=== PATIENT | female | born 1970 | race Caucasian/White ===

== ENCOUNTER 2017-10-06 08:42 | Day surgery (SDC) | payer OTHER, SELFPAY ==
[2017-10-03 18:29] LABS: Thyroid Stim Hormone (TSH) 1.11 uIU/mL (0.358-3.74)
[2017-10-06] VITALS (13 sets, daily range): BP systolic 102–123; BP diastolic 56–87; PULSE 46–79; RESP 14–18; TEMP 36.2–37.2; O2SAT 98–100; BMI 25.3
--- NOTE | 2017-10-06 | HYST_PTH ---
PATIENT: CRYSTAL SMITH LOC: [facility] – [place] U#:[id number] AGE/SX: 46/F ROOM: RE10/06/[address]: Dr. Elen Gonzales, MDDOB: 1970 BED: DIS: 10/07/2017 SPEC #: [id number] RECD: 10/07/17 14:27 STATUS: LAURA CRYSTAL #: [id number] ANNALISE: 10/06/17 00:[address]: Elen Gonzales DEPT: SURGICAL PATHOLOGY RECD BY: Georgi Washington ENTERED: 10/07/17 14:27 SP TYPE: HYSTERECT OTHR DR: MD Twila Quinones, HEADLINER INSTALLER-C Tissues: Uterus, NOS Procedures: Surgery Specimen Level V HEADER OPERATION: Hysterectomy, lap assisted vaginal; bilateral salpingectomy, cysto, right oophorectomy PRE-OP DIAGNOSIS: Pelvic pain, post ablation TISSUE SUBMITTED: Uterus, bilateral fallopian tubes, right ovary MICROSCOPIC DIAGNOSIS Uterus, bilateral fallopian tubes and right ovary, vaginal hysterectomy, bilateral salpingectomy and right oophorectomy: Cervix ? mild chronic cystic cervicitis. Endometrium ? focal area of proliferative endometrium and changes consistent with status post ablation. Myometrium - no pathologic diagnosis. Bilateral fallopian tubes - no pathologic diagnosis. Right ovary ? physiologic follicular and corpus luteum cysts. SJ:chepe 10/10/17 MICROSCOPIC DESCRIPTION Slides are reviewed. GROSS DESCRIPTION Received in fixative is one container labeled with the patient's name and designated uterus, bilateral fallopian tubes and right ovary. The specimen consists of a hysterectomy specimen consisting of uterus with cervix, attached right fallopian tube and ovary and left fallopian tube. The uterus with cervix weighs 82 gm and measures 8 x 6 x 4 cm. The serosal surface is chiang, glistening and with a few instrumentation rollins. The ectocervical mucosa shows focal congestion. The external os is slit-like in contour. The endocervical canal measures 2.5 cm in length and the endocervical mucosa is unremarkable. Sections of the cervix reveal multiple cysts filled with mucoid material. The endometrial cavity is narrow and measures 4 cm in length and 0.5 cm in width. The endometrium is congested without any mass lesion and measures <0.1 cm in thickness. Sections of the uterine wall do not reveal any mass lesion and it measures up to 2.5 cm in thickness. The right fallopian tube measures 7 cm in length and up to 0.6 cm in diameter. The fimbrial end is identified. No tubo-ovarian adhesions are noted. The soft to cystic ovary measures 4 x 2 x 2 cm. Sections reveal multiple cysts filled with clear to slightly turbid fluid. A cystic corpus luteum is also noted measuring 1 cm in greatest dimension. The largest cyst measures 1.5 cm in greatest dimension. The left fallopian tube measures 8 cm in length and 0.6 cm in diameter. The fimbrial end is identified. Sections reveal unremarkable cut surfaces. Box Turner sections are submitted in ten cassettes as follows: 1 - anterior cervix, 2 - posterior cervix, 3 & 4 - anterior uterine wall, 5 & 6 - posterior uterine wall, 7 ? right fallopian tube, 8 & 9 ? right ovary, 10 ? left fallopian tube. / LISY:chepe 10/07/17 TC:5 CPT: 64337
[2017-10-06 09:01] LABS: Internal QC Validated? YES +Cl - CLEAR BKGD; Pregnancy, Urine Negative Negative
[2017-10-06 09:10] LABS: Hematocrit 40.3 % (37-47); Hemoglobin 13.6 g/dl (12.0-15.0); Mean Corp Hgb Conc 33.7 g/gl (32-36); Mean Corpuscular Hgb 31.2 pg (27.0-32.0); Mean Corpuscular Volume 92.4 fL (81-99); Mean Platelet Vol. 10.4 fl (6.2-12.0); Platelet Count 360 K/mm3 (150-450); RBC Distribution Width SD 40.3 fl (35.1-43.9); Red Blood Count 4.36 M/mm3 (4.2-5.4); Scan Indicated on CBC? Y/N NO; White Blood Count 5.9 K/mm3 (4.4-11.0)
[2017-10-06] MEDS: Bupivacaine Mpf 0.5% 30 ML VIAL (09:49)
[2017-10-06] MEDS: Lubricating Jelly 60 GM Tube 30 GM TOPICAL (10:22)
[2017-10-06] MEDS: Ondansetron 4 MG/2 ML Vial (12:25)
--- NOTE | 2017-10-06 12:32 | PCM.CONS.U ---
Problem List (1) Bladder injury Status: Acute Qualifiers: Encounter type: initial encounter Qualified Code(s): S37.20XA - Unspecified injury of bladder, initial encounter Reason for Consult Date of Consultation: 10/06/17 Reason for Consultation: Bladder injury during hysterectomy History of Present Illness: The patient is a 46 year old female who is undergoing a laparoscopic-assisted vaginal hysterectomy at the time of the procedure was recognized to have a bladder injury in the midline bladder area so I was called in to assist with closure of his bladder injury. Reviewed the patient's chart. Past Medical History Allergies promethazine [From Phenergan] Adverse Reaction (Verified 10/06/17 09:07) Swelling Home Medications: Ambulatory Orders Medication Instructions Recorded Cetirizine HCl [Zyrtec] 10 mg PO DAILY MDD ALLERGIES 09/29/17 Ibuprofen [Motrin] 800 mg PO Q6H PRN PRN 09/29/17 Surgical History: noncontributory Psychiatric History: No pertinent psych hx Smoking Status: Never smoker Tobacco Use: Chew Alcohol: None Drugs: None Physical Exam - Physical Exam Vital Signs Temp 97.9 F 10/06/17 09:10 Pulse 53 L 10/06/17 09:10 Resp 14 10/06/17 09:10 BP 120/77 10/06/17 09:10 Pulse Ox 99 10/06/17 09:10 Intake & Output 10/04/17 10/05/17 10/06/17 23:59 23:59 23:59 Output Total 40 / 40 Balance -40 / -40 Weight: 67 kg Output: Urine 40 / 40 Oral: Moist Mucosa Neck: Supple Lungs: Normal air movement Cardiovascular: Regular rate Abdomen: Soft, Obese Laboratory Tests Past 24 Hrs 10/06/17 10/06/17 10/06/17 08:51 09:04 09:04 WBC 5.9 RBC 4.36 Hgb 13.6 Hct 40.3 MCV 92.4 MCH 31.2 MCHC 33.7 RDW 12.0 RDW Differential 40.3 Plt Count 360 MPV 10.4 Urine Test Negative Blood Type O POSITIVE Antibody Screen NEGATIVE Assessment/Plan All Active Problems Bladder injury (Acute) Multinodular goiter (nontoxic) (Acute) 46-year-old female with a bladder injury plan to proceed with laparoscopic repair of bladder injury intraoperatively.
--- NOTE | 2017-10-06 12:34 | PCM.OPRPT ---
Problem List (1) Bladder injury Status: Acute Qualifiers: Encounter type: initial encounter Qualified Code(s): S37.20XA - Unspecified injury of bladder, initial encounter Report of Operation Date of Procedure: 10/06/17 Pre-Operative Diagnosis: Bladder injury during hysterectomy Post-Operative Diagnosis: Same Surgery/Procedure Performed:: Laparoscopic repair of a bladder injury 2 layer closure and cystoscopy Description of Surgical Findings:: 46-year-old female who underwent a laparoscopic-assisted vaginal hysterectomy who was found to have a injury to the bladder at the midline posteriorly. I was called in by the [employer] help assist repair the bladder injury. 46-year-old female was asleep under anesthesia ports were placed in the abdomen I inspected the abdomen and recognized that the bladder midline first layer had been opened up already and then there was an injury to the mucosal layer and there was an injury to the bladder with a hole about the size of 1 cm in the midline posterior aspect of the bladder. I then used a V lock stitch and proceeded with stitching the first layer of the bladder closed after closing this up put a catheter in the bladder there is still small defect so I put a second stitch in and then this close it up really nicely we filled the bladder and distended and there is no leakage from the bladder. I then used a Vicryl stitch and used interrupted sutures to then closed the second layer laparoscopically for a 2 layer closure over the repair to complete a 2 layer repair over the injury. I then did a cystoscopy and the both left and right ureteral orifice were uninvolved and were effluxing clear urine and there was good closure of the bladder and no leakage. We will leave the catheter in for 2 weeks and 18 Nepali catheter for good drainage. Type of Anesthesia:: General Drains: Larkin - Admit VTE Documentation VTE Present on Admission: No VTE Mechan Device Prophylaxis: SCD's VTE Pharm Prophylaxis ordered?: No Reason prophylaxis not ordered:: Treatment Not Indicated
--- NOTE | 2017-10-06 12:43 | PCM.OP.BLANK ---
Operative Report Date of Procedure: 10/06/17 Pre-Operative Diagnosis: pelvic pain, post ablation syndrome, suspect adenomyosis Post-Operative Diagnosis: same, possible endometriosis Surgery/Procedure Performed:: LAVH, bilateral salpingectomy, right oophorectomy, repair of incidental cystotomy Description of Surgical Findings:: Uterus 7cm - right ovary with possible endometriosis noted, left ovary normal. incidental 0.5cm cystotomy noted on posterior midline aspect found during cystoscopy. Urology Dr. Lazar called to closed defect laparoscopically Surgeon: dr Elen Kat trip rider: Dr. Renetta Mckenzie Intraop Consultation: Urology, Dr. Lazar Type of Anesthesia:: General Anesthesiologist: TUSHAR Special Medications: 1% Lidocaine with Epinephrine Specimen's removed: uterus, cervix, bilateral tubes and Right ovary Drains: bourgeois Estimated Blood Loss (mL): 50 complications: small cystotomy (0.5cm) posterior midline- repaired in 2 layer laparoscopically Description of Procedure: Patient take to OR and prepped and draped in usual sterile fashion in dorsal lithotomy position with her arms tucked in a neurologically safe and neutral position. The uterus sounded to 7 cm. The [employer] uterine manipulator and bourgeois were placed. Attention was turned to the abdomen. All port sites were infiltrated with 1% lidocaine before the incisions were made. The anterior abdominal wall was tented up with towel clamps and using a direct entry approach a 5 mm intraumbilical port was placed. Intraperitoneal placement was confirmed with the laparoscope and the pneumoperitoneum was created. The patient was placed in Trendelenburg and 5 mm right and left lower quadrant ports were placed under direct visualization. The bowel was swept away. Left Ovary appeared normal. Right ovary with multiple cystic like structures with possible endometriotic implants. The Infundibulopelvic ligament on right were grasped, clamped, sealed and transected with the Ligasure. The left mesosalpinx was clamped and sealed starting at fimbriated end. The round ligaments were divided. The anterior peritoneum was dissected down to create the bladder flap with blunt dissection and the LigaSure. The uterine arteries were isolated, clamped, sealed and cut. There was minimal back bleeding from the uterus. Attention was turned to the vaginal portion of the case. The anterior vagina was infiltrated w/ lidocaine with dilute epinephrine. An incision was made over the anterior vagina and the anterior colpotomy incision was made with blunt and sharp dissection. The lower vagina was clamped, transected and suture ligated. A second pedicle containing the peritoneum was secured with Adri clamps, cut and suture ligated. The uterus was brought through the anterior colpotomy incision and the uterosacral ligaments were clamped, cut and suture ligated. The pedicles were examined and were suture ligated. The specimen was handed off. The cuff was closed with interrupted 0-vicryl figure of 8 sutures. Small amount of blood noted from bourgeois. Cystoscopy performed. Small cystotomy noted posterior midline. Urology called. See Dr. Lazar dictation for repair. 12mm port placed suprapubically. The defect was noted laparoscopically - approximately 0.5cm and closed in two layers- first layer with v-lock suture and second layer with vicryl. it was water tight. cystoscopy was then performed again and defect was closed- ureters were both seen effluxing. The pneumoperitoneum was recreated and the cuff and pedicles were hemostatic. The suprapubic port was closed with 0-vicryl to closed fascia. The skin incisions were closed with skin glue and 3-0 monocryl. The vaginal sweep was completed and negative. pt will keep bourgeois in place x 2 weeks and will see Urology in office for follow up. Grafts/Implants Used: none
--- NOTE | 2017-10-06 12:52 | OP.PCM_ITS ---
Operative Report Date of Procedure: 10/06/17 Pre-Operative Diagnosis: pelvic pain, post ablation syndrome, suspect adenomyosis Post-Operative Diagnosis: same, possible endometriosis Surgery/Procedure Performed:: LAVH, bilateral salpingectomy, right oophorectomy , repair of incidental cystotomy Description of Surgical Findings:: Uterus 7cm - right ovary with possible endometriosis noted, left ovary normal. incidental 0.5cm cystotomy noted on posterior midline aspect found during cystoscopy. Urology Dr. Lazar called to closed defect laparoscopically Surgeon: dr Elen Kat export coordinator: Dr. Renetta Mckenzie Intraop Consultation: Urology, Dr. Lazar Type of Anesthesia:: General Anesthesiologist: TUSHAR Special Medications: 1% Lidocaine with Epinephrine Specimen's removed: uterus, cervix, bilateral tubes and Right ovary Drains: bourgeois Estimated Blood Loss (mL): 50 complications: small cystotomy (0.5cm) posterior midline- repaired in 2 layer laparoscopically Description of Procedure: Patient take to OR and prepped and draped in usual sterile fashion in dorsal lithotomy position with her arms tucked in a neurologically safe and neutral position. The uterus sounded to 7 cm. The [employer] uterine manipulator and bourgeois were placed. Attention was turned to the abdomen. All port sites were infiltrated with 1% lidocaine before the incisions were made. The anterior abdominal wall was tented up with towel clamps and using a direct entry approach a 5 mm intraumbilical port was placed. Intraperitoneal placement was confirmed with the laparoscope and the pneumoperitoneum was created. The patient was placed in Trendelenburg and 5 mm right and left lower quadrant ports were placed under direct visualization. The bowel was swept away. Left Ovary appeared normal. Right ovary with multiple cystic like structures with possible endometriotic implants. The Infundibulopelvic ligament on right were grasped, clamped, sealed and transected with the Ligasure. The left mesosalpinx was clamped and sealed starting at fimbriated end. The round ligaments were divided. The anterior peritoneum was dissected down to create the bladder flap with blunt dissection and the LigaSure. The uterine arteries were isolated, clamped, sealed and cut. There was minimal back bleeding from the uterus. Attention was turned to the vaginal portion of the case. The anterior vagina was infiltrated w/ lidocaine with dilute epinephrine. An incision was made over the anterior vagina and the anterior colpotomy incision was made with blunt and sharp dissection. The lower vagina was clamped, transected and suture ligated. A second pedicle containing the peritoneum was secured with Adri clamps, cut and suture ligated. The uterus was brought through the anterior colpotomy incision and the uterosacral ligaments were clamped, cut and suture ligated. The pedicles were examined and were suture ligated. The specimen was handed off. The cuff was closed with interrupted 0-vicryl figure of 8 sutures. Small amount of blood noted from oburgeois. Cystoscopy performed. Small cystotomy noted posterior midline. Urology called. See Dr. Lazar dictation for repair. 12mm port placed suprapubically. The defect was noted laparoscopically - approximately 0.5cm and closed in two layers- first layer with v-lock suture and second layer with vicryl. it was water tight. cystoscopy was then performed again and defect was closed- ureters were both seen effluxing. The pneumoperitoneum was recreated and the cuff and pedicles were hemostatic. The suprapubic port was closed with 0-vicryl to closed fascia. The skin incisions were closed with skin glue and 3-0 monocryl. The vaginal sweep was completed and negative. pt will keep bourgeois in place x 2 weeks and will see Urology in office for follow up. Grafts/Implants Used: none
[2017-10-06] MEDS: Ketorolac 30 MG/ML Syringe IV ×2 (13:26→18:41)
[2017-10-06 14:03] LABS: Anion Gap 6 (5-15); BUN 12 mg/dL (7-18); BUN/Creat Ratio 9.9 RATIO (10-20); Calcium,Total 8.3 mg/dL (8.5-10.1); Chloride 105 mmol/L (98-107); Creatinine, Serum 1.21 mg/dL (0.55-1.02); EST Glomerular Filtration Rate 51 mL/min (>60); Est Glom Filt Rate - Afr Amer 62 mL/min (>60); Estimated Creatinine Clearance 51.23 ml/min; Glucose 89 mg/dL (74-106); Potassium 4.2 mmol/L (3.5-5.1); Sodium Level 137 mmol/L (136-145)
--- NOTE | 2017-10-06 14:13 | PCM.DC.AHY ---
Discharge Diet: No Restrictions Discharge Activity: Return to Normal Activity, May Not Drive - while taking narcotic pain medications., May Shower May resume sexual activity in: 6-8 weeks Lifting Restrictions: 20 Call your doctor if your incision/area has: Continuous Slow Oozing, Sudden Increased Bleeding, Increased Pain/ Swelling, Increased Redness, Foul Smelling Discharge Call your doctor if you observe: Fever of 101 or Higher, Inability to urinate, Inability to have a bowel movement, Using more than one pad per hour Cleanse incision/area with: - - you have skin glue over incisions, ok to let soap and water run over them and dab dry Allergies/Adverse Reactions: Allergies promethazine [From Phenergan] Adverse Reaction (Verified 10/06/17 09:07) Swelling Medications to take at Discharge Cetirizine HCl [Zyrtec] 10 mg PO DAILY MDD ALLERGIES 09/29/17 Ibuprofen [Motrin] 800 mg PO Q6H PRN PRN 09/29/17 Oxycodone HCl/Acetaminophen [Percocet 5/325] 1 - 2 tablet PO Q6H PRN PRN 7 Days #20 tablet 10/06/17 SimETHICONE [Mylicon] 80 mg PO PCHS tablet 10/06/17 The following prescriptions were given: Oxycodone HCl/Acetaminophen [Percocet 5/325] 1 - 2 tablet PO Q6H PRN PRN 7 Days #20 tablet PRN Reason: Pain Primary Care Physician: Twila Celaya [Primary Care Provider] - Test Results: Test results from this visit will be discussed in further detail at your follow-up appointment, if applicable. Please Follow Up With: Elen Gonzales MD When: 2 weeks post op Please Follow Up With: Darrick Lazar MD When: 10-14 days - UROLOGIST at [facility] [place] call for appointment
[2017-10-06] MEDS: Lactated Ringers 1,000 ML 125 ML IV (17:56)
[2017-10-06] MEDS: 0.9% NaCl Peripheral Flush Adult/Peds IV (18:39)
[2017-10-06] MEDS: Docusate Sodium 100 MG Capsule PO (21:04)
[2017-10-07 00:41] VITALS: BP 106/60; PULSE 50; RESP 18; TEMP 36.8; O2SAT 100
[2017-10-07] MEDS: Ketorolac 30 MG/ML Syringe IV ×2 (01:31→07:04)
[2017-10-07] MEDS: oxyCODONE 5 MG Tablet PO ×2 (03:24→07:51)
[2017-10-07 06:13] LABS: Hemoglobin 11.6 g/dl (12.0-15.0); Mean Corp Hgb Conc 32.2 g/gl (32-36); Mean Corpuscular Hgb 30.2 pg (27.0-32.0); Mean Corpuscular Volume 93.8 fL (81-99); Mean Platelet Vol. 10.6 fl (6.2-12.0); Platelet Count 317 K/mm3 (150-450); RBC Distribution Width CV 12.2 % (11.6-14.6); RBC Distribution Width SD 41.4 fl (35.1-43.9); Red Blood Count 3.84 M/mm3 (4.2-5.4); White Blood Count 13.1 K/mm3 (4.4-11.0)
[2017-10-07 06:19] LABS: Scan Indicated on CBC? Y/N NO
[2017-10-07 06:40] VITALS: BP 110/71; PULSE 71; RESP 18; TEMP 36.9; O2SAT 99
[2017-10-07] MEDS: 0.9% NaCl Peripheral Flush Adult/Peds IV (07:04)
[2017-10-07 07:26] VITALS: O2SAT 98
--- NOTE | 2017-10-07 08:26 | PCM.PN.OB ---
Patient Problems: Active and Suspected Problems Bladder injury (Acute) Subjective: pt seen at bedside, doing well. pt reports good pain control but does have some intermittent sharp pain on right. Mild nausea, no vomiting. - Physical Exam General: Alert, Oriented x3 Abdomen: Soft, Non-Distended, - - appropriately tender to touch Extremities: No Calf Tenderness Vital Signs Temp Pulse Resp BP Pulse Ox 98.4 F 71 18 110/71 98 10/07/17 06:40 10/07/17 06:40 10/07/17 06:40 10/07/17 06:40 10/07/17 07:26 Oxygen Flow Rate (L/min) 2 Oxygen Delivery Method Room Air Weight: 67 kg Body Mass Index (BMI) 25.3 Intake and Output for Last 24 Hours 10/05/17 10/06/17 10/07/17 23:59 23:59 23:59 Intake Total 3428 / 3428 2183 / 2183 Output Total 1110 / 1110 1550 / 1550 Balance 2318 / 2318 633 / 633 Laboratory Tests Past 24 Hrs 10/06/17 10/06/17 10/06/17 08:51 09:04 09:04 WBC 5.9 RBC 4.36 Hgb 13.6 Hct 40.3 MCV 92.4 MCH 31.2 MCHC 33.7 RDW 12.0 RDW Differential 40.3 Plt Count 360 MPV 10.4 Sodium Potassium Chloride Carbon Dioxide Anion Gap BUN Creatinine Estim Creat Clear Calc Est GFR (MDRD) Af Amer Est GFR (MDRD) Non-Af BUN/Creatinine Ratio Glucose Calcium Magnesium Troponin I Urine Test Negative Blood Type O POSITIVE Antibody Screen NEGATIVE 10/06/17 10/07/17 13:40 05:30 WBC 13.1 H RBC 3.84 L Hgb 11.6 L Hct 36.0 L MCV 93.8 MCH 30.2 MCHC 32.2 RDW 12.2 RDW Differential 41.4 Plt Count 317 MPV 10.6 Sodium 137 Potassium 4.2 Chloride 105 Carbon Dioxide 26.0 Anion Gap 6 BUN 12 Creatinine 1.21 H Estim Creat Clear Calc 51.23 Est GFR (MDRD) Af Amer 62 Est GFR (MDRD) Non-Af 51 L BUN/Creatinine Ratio 9.9 L Glucose 89 Calcium 8.3 L Magnesium 2.0 Troponin I < 0.015 Urine Test Blood Type Antibody Screen Medical Necessity - Tobacco Use Smoking Status: Never smoker Tobacco Use: Chew Assessment/Plan All Active Problems Bladder injury (Acute) Multinodular goiter (nontoxic) (Acute) 46yo POD #1 s/p LAVH, bilateral salpingectomy, right oophorectomy, cystotomy repair 1) MAINTAIN bourgeois to leg bag at dc home 2) needs appt with Dr. Lazar - pt instructed to call 3)pain mgmt 4) Ambulation 5) Dc home 6) dc home
[2017-10-07] MEDS: Docusate Sodium 100 MG Capsule PO (09:11)
[2017-10-07 10:21] VITALS: BP 103/68; PULSE 52; RESP 16; TEMP 36.6; O2SAT 98
== END 2017-10-07 10:40 | disposition home or self-care (01) ==
LOC: SDC 08:42 → AC 08:42 → MS2 10-07 07:22
PROVIDERS: Family Provider Nurse Practitioner; PCP Nurse Practitioner; Visit Provider Obstetrics & Gynecology
PROC: 0UT9FZZ Resection of Uterus, Via Natural or Artificial Opening With Percutaneous Endoscopic Assistance (ICD-10-PCS; CPT 58552; principal; 2017-10-06 09:45)
DX: N83.11 Corpus luteum cyst of right ovary (principal); N72 Inflammatory disease of cervix uteri; N99.71 Accidental puncture and laceration of a genitourinary system organ or structure during a genitourinary system procedure; K21.9 Gastro-esophageal reflux disease without esophagitis; F17.220 Nicotine dependence, chewing tobacco, uncomplicated; Z79.899 Other long term (current) drug therapy
CPT/HCPCS: 00840; 51860; 58552; 36415; 80048; 81025; 83735; 84443; 84484; 85027; 86850; 86900; 88307; J7120; A4216; J2405

== ENCOUNTER → 2017-10-18 10:15 | Outpatient (CLI) | payer OTHER, SELFPAY ==
--- NOTE | 2017-10-18 10:18 | RAD_ITS ---
CLINICAL HISTORY: Female, 46 years old. Follow-up for bladder injury. PROCEDURE: Cystogram. FLUOROSCOPY TIME (if supplied): (0:21) minutes/seconds 150 mL of contrast installed into the bladder in a retrograde fashion through the indwelling Larkin catheter. The radiology installed the contrast into the bladder. TECHNIQUE: (All elements of maximal sterile barrier technique followed, including US elements as applicable) 150 cc of contrast was introduced into the bladder through the indwelling Larkin catheter. Imaging was obtained. The urinary bladder is unremarkable. There is no evidence of leak. RAD/Cystography min 3 Views IMPRESSION: Unremarkable cystogram. Electronically Signed: Luis Santo MD at 13:44 EDT Tel [phone], Service support ,
== END ==
PROVIDERS: Family Provider Nurse Practitioner; PCP Nurse Practitioner; Visit Provider Urology
DX: S37.29XS Other injury of bladder, sequela (principal)
CPT/HCPCS: 51600; 74430; Q9965

== ENCOUNTER → 2018-01-27 10:15 | Outpatient (CLI) | payer OTHER, SELFPAY ==
--- NOTE | 2018-01-27 10:26 | STE_ITS ---
Reason For Study: Chest Pain Stress Results Protocol: Rufus Protocol Maximum Predicted HR: 175 bpm Target HR: 149 bpm % Maximum Predicted HR: 93 % DurationHeart Rate Stage (mm:ss) (bpm) BP Comment Baseline 58 122/741/10 Chest Pain Rufus Protocol Stage I 3:00 100 126/641/10 Chest Pain Rufus Protocol Stage II 3:00 126 138/601/10 Chest Pain Rufus Protocol Stage III 3:00 139 146/643/10 Chest Pain Rufus Protocol Stage IV 1:00 162 / 3/10 Chest Pain Recovery 81 114/721/10 Chest Pain Stress Duration: 10:00 mm:ss Maximum Stress HR: 162 bpm METS: 13 Baseline Echocardiogram Findings Stress Echo Wall motion Data Resting WM Intermediate WM Stress WM Resting Wall Motion Wall Motion Stress All segments Normal. All segments Hyperkinetic. Ejection Fraction 60 %. Ejection Fraction 75 %. Stress Results Heart rate response: appropriate Blood pressure response: normal resting BP - appropriate response Arrhythmias: none Functional capacity: good Stopped secondary to: leg discomfort. EKG Data Baseline ECG: sinus bradycardia. Peak exercise ECG: no obvious ECG changes. Symptoms with Stress No c/o chest discomfort during exercise / recovery. Interpretation Summary Negative (adequate) Stress Echocardiogram Ordering Physician: Edgar Musa Referring Physician: Edgar Musa Performed By: Marichuy Dobson, RDCS, RVT
== END ==
PROVIDERS: Family Provider Nurse Practitioner; PCP Nurse Practitioner; Referring Provider Internal Medicine Cardiovascular Disease; Visit Provider Internal Medicine Cardiovascular Disease
DX: R07.9 Chest pain, unspecified (principal)
CPT/HCPCS: 93017; 93350

== ENCOUNTER → 2018-05-13 09:37 | Outpatient (CLI) | payer OTHER, SELFPAY ==
[2018-01-19 11:10] VITALS: BMI 24.6
[2018-05-13 10:20] LABS: Hematocrit 39.7 % (37-47); Mean Corp Hgb Conc 32.7 g/gl (32-36); Mean Corpuscular Hgb 30.2 pg (27.0-32.0); Mean Corpuscular Volume 92.1 fL (81-99); Mean Platelet Vol. 10.5 fl (6.2-12.0); Platelet Count 332 K/mm3 (150-450); RBC Distribution Width CV 12.4 % (11.6-14.6); RBC Distribution Width SD 41.8 fl (35.1-43.9); Red Blood Count 4.31 M/mm3 (4.2-5.4); White Blood Count 6.1 K/mm3 (4.4-11.0)
[2018-05-13 10:22] LABS: Scan Indicated on CBC? Y/N NO
[2018-05-13 10:56] LABS: Estradiol 71.6 pg/mL; Free T3 2.4 pg/mL (2.18-3.98); T4 Free Direct 0.86 ng/dL (0.76-1.46)
[2018-05-15 10:37] LABS: Progesterone Level 5.39 ng/mL (See Comment)
[2018-05-15 12:19] LABS: DHEA Sulfate 29.1 ug/dL (41.2-243.7)
== END ==
PROVIDERS: Family Provider Nurse Practitioner; PCP Nurse Practitioner; Referring Provider Obstetrics & Gynecology; Visit Provider Obstetrics & Gynecology
DX: R53.83 Other fatigue (principal); L70.9 Acne, unspecified; Z78.0 Asymptomatic menopausal state
CPT/HCPCS: 36415; 82533; 82627; 82670; 83036; 84144; 84403; 84439; 84443; 84481; 85027; 82626

== ENCOUNTER → 2018-08-17 13:35 | Outpatient (CLI) | payer OTHER, SELFPAY ==
[2018-01-19 11:10] VITALS: BMI 24.6
[2018-08-17 17:32] LABS: Progesterone Level 0.94 ng/mL (See Comment)
[2018-08-17 17:55] LABS: Estradiol < 11.0 pg/mL
== END ==
PROVIDERS: Family Provider Nurse Practitioner; PCP Nurse Practitioner; Visit Provider Obstetrics & Gynecology
DX: R63.5 Abnormal weight gain (principal); R68.82 Decreased libido; N94.3 Premenstrual tension syndrome
CPT/HCPCS: 36415; 82670; 84144

== ENCOUNTER → 2018-10-31 12:02 | Outpatient (CLI) | payer OTHER, SELFPAY ==
[2018-01-19 11:10] VITALS: BMI 24.6
--- NOTE | 2018-10-31 12:06 | RAD_ITS ---
STUDY: X-RAY - LUMBAR SPINE REASON FOR EXAM: Female, 47 years old. Low back pain following a recent fall. TECHNIQUE: 5 view(s) of the lumbar spine were obtained including oblique views. COMPARISON: None FINDINGS: Normal lumbar lordosis. There is no substantial scoliosis. There is a normal alignment of the vertebrae. Normal vertebral bodies and endplates. Normal disc space heights. The soft tissue structures are unremarkable. RAD/L/S Spine Min 4 Views IMPRESSION: Normal x-ray examination of the lumbar spine. Electronically Signed: Luis Santo, at 12:34 EDT , Service support ,
== END ==
PROVIDERS: Family Provider Nurse Practitioner; PCP Nurse Practitioner; Referring Provider Nurse Practitioner; Visit Provider Nurse Practitioner
DX: M54.9 Dorsalgia, unspecified (principal)
CPT/HCPCS: 72110

== ENCOUNTER 2019-05-02 08:53 | Day surgery (SDC) | payer OTHER, SELFPAY ==
[2019-04-03 09:04] VITALS: BMI 24.6
--- NOTE | 2019-04-03 09:46 | HP_ITS ---
I have re-examined the patient. There are no clinical changes since date of exam. Intake Intake Visit Reasons: RIGHT SHOULDER Accompanied by: self Is patient in pain?: Yes Pain scale (1-10): 5 Allergies levofloxacin [From Levaquin] Adverse Reaction (Unknown, Verified 01/19/18 11:10) Unknown promethazine [From Phenergan] Adverse Reaction (Verified 01/19/18 11:10) Swelling Medications Cetirizine HCl [Zyrtec] 10 mg PO DAILY MDD ALLERGIES 09/29/17 [History Confirmed 04/03/19] Ibuprofen [Motrin] 800 mg PO Q6H PRN PRN 09/29/17 [History Confirmed 04/03/19] PFSH Social History (Updated 04/03/19 @ 13:47 by Jill Doty DO) Smoking Status: Never smoker alcohol intake: current substance use type: does not use HPI RIGHT SHOULDER: Surgical H&P: Yes Details: Parts of this documentation were recorded by a scribe, this documentation accurately reflects the service provided and the decisions made by me, Jill Doty DO 04/03/19 4929. CRYSTLA SMITH is a 48 year old F NEW patient here today for second opinion of right shoulder pain. SHe has been having her right shoulder for about 6 months. She is having pain over the top of her shoulder and anterior shoulder pain into her biceps. Denies numbness, tingling or other associated symptoms. She does not recall any injury other than a few years ago when she was bucked off a horse but did not have pain until 6 months ago. Patient has seen Dr. Matos from [facility]. She does have a disc today with an MRI and x-rays. Patient has had a steroid injection which was not effective at all, she had this injection about 1 month ago. She has not had any formal PT but has done HEP which has not been helpful. She has some limited ROM and she does have lack of strength. SHe does report that she has a herniated disc but she has been using a chiropractor and this has been helpful. ROS Musc Reports joint pain, Reports joint swelling, Reports limited joint movement, Denies numbness, Reports radiating pain into limb, Reports stiffness, Denies tingling Skin/Breast Denies redness, Denies lesions, Denies itching, Denies rash, Denies skin swelling Neuro No numbness, No tingling No rhonchi's rales wheezing, no abdominal pain, no audible bruits Ortho Exam Right Shoulder Testing: Positive Hawkin's, TTP Biceps, AROM-External Rotation at side 0-60, PROM-Forward Elevation 0-180, empty can and cross arm; negative Drop Arm, AROM-Forward Elevation 0-180 or translation SHOULDER: weak ER, NVI, ulnar nerve weakness, compensatory trap and rhomboid pain and spasm Assessment & Plan Problems 1. Impingement syndrome of right shoulder M75.41 2. Bursitis of right shoulder M75.51 3. Osteoarthritis of right acromioclavicular joint M19.011 4. Traumatic incomplete tear of right rotator cuff, initial encounter S46.011A Plan Personally reviewed the patient's medical history, medications, surgeries and recent exams if available. X-rays were reviewed. There is no obvious fracture, dislocation, or lucency noted. Educated on the anatomy of the shoulder and explained she has a Supscap and supraspinatus tears, biceps tendonsis, AC OA and bursitis/impingement noted on the MRI that was reviewed today. Her treatment options are do nothing, repeat injection 3 months after the first one with previous doctor, PT/HEP, or since the conservative treatment fails can do an arthroscopy for repair vs debridement and tenodesis vs tenotomy. Instructed to cut back tobacco use to limit risk of failure and healing. Reviewed the sling use and limitations post op. Reviewed the pre-operative plans with the patient. Risks and benefits of the procedure were fully explained, including but not limited to infection, neurovascular injury, continued pain, arthritis, stiffness, need for further surgery, re-injury, DVT, PE, general risks of anesthesia, and loss of limb or life. The patient understands all the risks and does wish to proceed with written consent. Follow up post op or sooner if pain, swelling, numbness or associated symptoms, or concerns develop. All questions answered. Patient in agreement of plan. Coding Level of Care Code Off vis,new,level 3 Diagnoses Impingement syndrome of right shoulder M75.41 Bursitis of right shoulder M75.51 Osteoarthritis of right acromioclavicular joint M19.011 Traumatic incomplete tear of right rotator cuff, initial encounter S46.011A ??Encounter type: initial encounter ??Rotator cuff tear extent: incomplete ??Rotator cuff tear trauma status: traumatic 04/03/19 0485 <Electronically signed by Jill dahl DO> Date _ Jill Doty DO
--- NOTE | 2019-04-27 14:51 | EKG12_ITS ---
Test Reason : PRE OP Blood Pressure : / mmHG Vent. Rate : 068 BPM Atrial Rate : 068 BPM P-R Int : 118 ms QRS Dur : 104 ms QT Int : 382 ms P-R-T Axes : 058 062 008 degrees QTc Int : 406 ms Normal sinus rhythm ST & T wave abnormality, consider inferior ischemia Abnormal ECG Confirmed by BILL MALIK, ABDON ([id number]), order editor SUMI DOMÍNGUEZ ([id number]) on 04/30/2019 10:55:25 AM Referred By: Jill Doty Confirmed By:DON KHAN MD
[2019-04-27 14:57] LABS: Hematocrit 38.9 % (37-47); Hemoglobin 12.5 g/dL (12.0-15.0); Mean Corp Hgb Conc 32.1 g/dL (32-36); Mean Corpuscular Hgb 29.7 pg (27.0-32.0); Mean Corpuscular Volume 92.4 fL (81-99); Mean Platelet Vol. 10.3 fl (6.2-12.0); Platelet Count 326 K/mm3 (150-450); RBC Distribution Width CV 11.9 % (11.6-14.6); RBC Distribution Width SD 40.5 fl (35.1-43.9); Red Blood Count 4.21 M/mm3 (4.2-5.4); White Blood Count 6.4 K/mm3 (4.4-11.0)
[2019-04-27 15:17] LABS: International Normalized Ratio 1.1; Prothrombin Time (Protime)PT. 13.9 SECONDS (11.7-14.9)
[2019-04-27 15:18] LABS: Partial Thromboplast Time 31.2 Seconds (24.1-36.2)
[2019-04-27 15:25] LABS: AST(SGOT) 15 U/L (15-37); Alanine Aminotransfer ALT/SGPT 23 U/L (13-56); Albumin, Serum 4.1 g/dL (3.2-5.0); Alkaline Phosphatase 66 U/L (45-117); Anion Gap 5 (5-15); BUN 12 mg/dL (7-18); Bilirubin, Direct 0.14 mg/dL (0.00-0.30); Calcium,Total 9.1 mg/dL (8.5-10.1); Chloride 103 mmol/L (98-107); Creatinine, Serum 0.92 mg/dL (0.55-1.02); EST Glomerular Filtration Rate 70 mL/min (>60); Est Glom Filt Rate - Afr Amer 84 mL/min (>60); Globulin 3.7 g/dL (2.2-4.2); Glucose 139 mg/dL (74-106); Potassium 3.4 mmol/L (3.5-5.1); Protein, Total 7.8 g/dL (6.4-8.2); Sodium Level 138 mmol/L (136-145)
[2019-05-01 14:49] VITALS: BMI 25.2
[2019-05-02] VITALS (7 sets, daily range): BP systolic 114–127; BP diastolic 65–78; PULSE 56–86; RESP 16; TEMP 36–36.7; O2SAT 97–100; BMI 24.1
[2019-05-02] MEDS: Lactated Ringers 1,000 ML 100 ML IV (09:25)
--- NOTE | 2019-05-02 10:30 | SHO_PTH ---
PATIENT: CRYSTAL SMITH LOC: [facility] U#:[id number] AGE/SX: 48/F ROOM: RE05/02/[address]: Dr. Jill Doty, : 1970 BED: DIS: 05/02/2019 SPEC #: [id number] RECD: 05/02/19 15:48 STATUS: LAURA REChristina #: [id number] ANNALISE: 05/02/19 10:[address]: Jill Doty DEPT: SURGICAL PATHOLOGY RECD BY: Stefany Kennedy ENTERED: 05/02/19 15:49 SP TYPE: HUMERUS OTHR DR: Twila Celaya, [employer] SUPER[employer]OR-C Tissues: Humerus, NOS Procedures: Decalcification bone/plaque Surgery Specimen Level IV HEADER OPERATION: Arthroscopy, shoulder cuff debridement PRE-OP DIAGNOSIS: Impingement syndrome right shoulder; bursitis right shoulder; osteoarthritis right acromioclavicular joint, right rotator cuff tear TISSUE SUBMITTED: Right biceps tendon tissue MICROSCOPIC DIAGNOSIS Right biceps tendon, biopsy: Tendon with reparative and reactive change. AM:chepe 05/03/19 MICROSCOPIC DESCRIPTION Slides are reviewed. GROSS DESCRIPTION Received in fixative is one container labeled with the patient's name and designated right biceps tendon tissue. The specimen consists of a fragment of pink-white tendon measuring 4.2 x 0.6 x 0.2 cm. The specimen is serially sectioned and totally submitted in one cassette. / AM:chepe 05/02/19 TC:5 CPT: 72039, 01385
[2019-05-02] MEDS: Cefazolin 2 GM in 0.9% Normal Saline 100 ML IV (11:17)
--- NOTE | 2019-05-02 11:19 | PCM.DC.ORTHO ---
Discharge Diet: No Restrictions - may move shoulder, no active range of motion of elbow, may move fingers and wrist as tolerated May remove dressings in 4 to 5 days and apply Band-Aids to incision sites and get incision wet at that time. Discharge Activity: May Not Drive May shower in (days): 1 Ice area for (Minutes): 20 - Every hour while awake. Weight Bearing Status: Weight bearing as tolerated Keep extremity elevated above heart level: Operative Extremity Call your doctor if your incision/area has: Continuous Slow Oozing, Sudden Increased Bleeding, Increased Pain/ Swelling, Increased Redness, Foul Smelling Discharge Call your doctor if you observe: Fever of 101 or Higher, Coldness, Increased Pain, Numbness or Tingling, Change in Color, Calf discomfort Allergies/Adverse Reactions: Allergies levofloxacin [From Levaquin] Adverse Reaction (Unknown, Verified 05/02/19 09:04) Unknown promethazine [From Phenergan] Adverse Reaction (Verified 05/02/19 09:04) Swelling Medications to take at Discharge Cetirizine HCl [Zyrtec] 10 mg PO DAILY MDD ALLERGIES 09/29/17 Ibuprofen [Motrin] 800 mg PO Q6H PRN PRN 09/29/17 Acetaminophen [Tylenol Extra Strength] 500 - 1,000 mg PO Q6H PRN PRN 04/26/19 Oxycodone HCl/Acetaminophen [Percocet 5/325] 1 - 2 tab PO Q6H PRN PRN 5 Days #28 tab 05/02/19 Zolpidem Tartrate [Ambien (Generic)] 5 mg PO QHS PRN PRN #14 tab 05/02/19 The following prescriptions were given: Zolpidem Tartrate [Ambien (Generic)] 5 mg PO QHS PRN PRN #14 tab PRN Reason: Insomnia Transmission Status: Sent to [facility] Oxycodone HCl/Acetaminophen [Percocet 5/325] 1 - 2 tab PO Q6H PRN PRN 5 Days #28 tab PRN Reason: Pain Transmission Status: Sent to [facility] Orders to be completed after discharge: 12 Lead EKG [CVS] Time Frame: 04/26/19, Facility: [facility], Location: Cardiovascular Services Primary Care Physician: Twila Celaya NP-C [Primary Care Provider] - Test Results: Test results from this visit will be discussed in further detail at your follow-up appointment, if applicable. Please Follow Up With: Jill Doty, DO - [phone]
[2019-05-02] MEDS: Epinephrine (1 mg/ml) 1 MG/ML VIAL (12:24)
[2019-05-02] MEDS: Mupirocin Ointment 22gm Tube 1 APPLIC (12:25)
--- NOTE | 2019-05-02 14:04 | OP.PCM_ITS ---
Report of Operation Date of Procedure: 05/02/19 Pre-Operative Diagnosis: left shoulder rotator cuff tear, biceps labral junction tear, subacromial impingment syndrome/ Post-Operative Diagnosis: same Surgery/Procedure Performed:: sals, rc debridement, labral debridement, s ad/acromioplasty, open subpec biceps tenodesis tandem mill roller: Gonzalo Brown Type of Anesthesia:: General Anesthesiologist: Hunter Shah Specimen's removed: biceps tendon Estimated Blood Loss (mL): 10cc Fluids Replaced: 600cc lr Description of Procedure: Preop note Patient is a 48-year-old female with continued right shoulder pain MRI confirms acromial type II, rotator cuff leading edge partial thickness tear, impingement bursitis and SLAP tear of her biceps. Patient has increasing pain especially in her biceps and referred lateral pain. Physical exam c/w pos speeds, neers, biceps ttp, neg apprehension/pos obriens. Patient failed conservative treatment like to proceed with right shoulder arthroscopy repair as indicated. Risk benefits alternatives were discussed with patient. Risk include but not limited to blood loss, blood clot, infection, neurovascular, failure procedure, loss of life and loss of limb. Patient is aware like proceed with right shoulder arthroscopy repair as indicated. Operative note Patient seen and examined preoperative holding area. Right arm was marked. Patient brought to the operating room placed supine on the operating table. Sign, anesthesia, antibiotics were administered. Please note the patient received a preoperative regional block interscalene block in the preop holding area. Patient was prepped and draped usual sterile fashion with a beachchair positioning skilled nursing the through beachchair position we did recheck her blood pressure which was stable throughout. All bony problems well-padded SCDs placed on bilateral lower extremity. Patient was pH placed in beachchair positioning her right arm was prepped and draped usual sterile technique. We marked out our bony landmarks for portal placement. We then insufflated the glenohumeral joint for the posterior aspect we had good return. Then created our posterior portal with 11 blade. Timeout was performed prior to that. We then began to begin our diagnostic arthroscopy. There was labral fraying at the superior edge going leading anterior. The biceps labral junction was unstable we then created an anterior portal under direct visualization. The subscap was intact and stable to probing and negative posterior humeral shuck test. There were no loose bodies in the inferior recess. We then noticed that she had a leading edge partial thickness rotator cuff tear of the supraspinatus this was gently debrided as well. We then marked this was an 18-gauge spinal needle significant look at this from the bursal side as well. We then truncated the biceps at its proximal labral junction and then debrided the labrum again to a stable rim and debrided back any labral fraying that was on the undersurface of that as well anterior because there is some labral fraying there as well. We then moved to t he subacromial space. We created a lateral portal under direct visualization. There was extensive bursitis throughout she had a hooked acromion as well. This bursitis was resected with combination of a shaver and a burner. Resected any bony promises that we did encounter in the acromion and moving medial undersurface of the clavicle with a bur as well. We then moved to our open subpectoral tenodesis. The arm was reprepped we late we did the allotted 3 minutes we created about a 2 cm incision just distal to the pec insertion dissected down to the biceps sheath fascia was which was excised and the biceps was brought out of the incision we truncated after measuring appropriate length for our biceps sub-pec tenodesis with Arthrex button system. After truncating and whipstitching the biceps tendon we then placed the sutures through the pec button we drilled unicortical he into the humeral shaft then flipped our button on the inside the shaft brought the tendon down to bone and then so oversewed it with to the periosteum. We then irrigated the incision with copious amounts of sterile saline. Incision was closed with interrupted 2-0 Vicryl and a running 4 Monocryl the portals were closed with interrupted 4-0 nylon stitches and sterile dressings were applied. Sling was applied to the right upper extremity. Patient taught procedure well no complication transferred recovery room stable condition Postoperative note Pharmacy has prescriptions We will give pictures to family in 2 weeks Call with increased pain numbness tingling further issues arise Sling for elbow only May move shoulder as tolerated This note was generated with GetAF[employer]ation software. It may contain incorrect words, spelling, and punctuation that were not noted in checking the note before signing.
== END 2019-05-02 14:45 | disposition home or self-care (01) ==
LOC: SDC 08:53 → AC 08:54
PROVIDERS: Anesthesiology; PCP Nurse Practitioner; Referring Provider Orthopaedic Surgery; Visit Provider Orthopaedic Surgery
PROC: (CPT 29827; principal; 2019-05-02 10:10)
DX: S46.011A Strain of muscle(s) and tendon(s) of the rotator cuff of right shoulder, initial encounter (principal); S43.431A Superior glenoid labrum lesion of right shoulder, initial encounter; X58.XXXA Exposure to other specified factors, initial encounter; V80.010A Animal-rider injured by fall from or being thrown from horse in noncollision accident, initial encounter; Y93.52 Activity, horseback riding; M75.41 Impingement syndrome of right shoulder; M75.51 Bursitis of right shoulder; M19.011 Primary osteoarthritis, right shoulder; I49.3 Ventricular premature depolarization; F17.200 Nicotine dependence, unspecified, uncomplicated
CPT/HCPCS: 01630; 29807; 29822; 64415; 76942; 36415; 80048; 80076; 85027; 85610; 85730; 88305; 88311; 93005; J7120; J2405

== ENCOUNTER → 2020-02-29 06:27 | Outpatient (CLI) | payer OTHER, SELFPAY ==
--- NOTE | 2020-02-29 06:29 | MRI_ITS ---
STUDY: MRI LEFT SHOULDER REASON FOR EXAM: Left shoulder pain for 1.5 months, popping, decreased range of motion, feeling of sliding out of socket. TECHNIQUE: Standardized fat and water weighted pulse sequences were obtained in all 3 orthogonal planes. COMPARISON: Radiographs 02/07/2020. FINDINGS: There is mild supraspinatus and infraspinatus tendinosis (T2 coronal images 6-12) without discrete tendon tear. Normal subscapularis tendon. Normal teres minor tendon. Normal supraspinatus muscle. Normal infraspinatus muscle. Normal subscapularis muscle. Normal teres minor muscle. There is a small glenohumeral joint effusion. Normal humeral head and visualized proximal humerus. Normal biceps labral complex. Normal intracapsular long biceps tendon. Normal labrum. Normal capsulo- ligamentous complex. There is no substantial acromioclavicular arthrosis. There is a Type II morphology (curved), with a neutral orientation. There is a very small volume of subacromial-subdeltoid bursal fluid (T2 coronal images 8-12). Normal visualized coracohumeral and coracoacromial ligaments. Normal deltoid muscle. Normal trapezius muscle. MRI/Upper Ext Joint Only(Routine) IMPRESSION: Mild supraspinatus and infraspinatus tendinosis without demonstrated rotator cuff tear. Very mild subacromial-subdeltoid bursitis. Small glenohumeral joint effusion. Electronically Signed: Gerald Gambino MD at 8:32 EST Tel , Service support ,
== END ==
PROVIDERS: PCP Nurse Practitioner; Referring Provider Orthopaedic Surgery; Visit Provider Orthopaedic Surgery
DX: S49.92XA Unspecified injury of left shoulder and upper arm, initial encounter (principal)
CPT/HCPCS: 73221

== ENCOUNTER → 2020-04-23 09:13 | Outpatient (CLI) | payer OTHER, SELFPAY ==
--- NOTE | 2020-04-23 09:15 | US_ITS ---
STUDY: THYROID ULTRASOUND REASON FOR EXAM: Female, 49 years old. Nodules TECHNIQUE: Ultrasound evaluation of the thyroid was performed with real-time and static naarnjo-scale imaging. COMPARISON: Comparison is made with prior study dated 01/18/2017. FINDINGS: RIGHT LOBE: The right lobe of the thyroid gland measures 5.1 cm x 1.4 cm x 1.8 cm. There is a homogeneous echotexture. There is a 7 mm x 5 mm x 7 mm solid nodule in the midpole of the thyroid. There is evidence of perinodular vascularity. This nodule has decreased in size as compared to prior study. LEFT LOBE: The left lobe of the thyroid gland measures 4.7 cm x 1.4 cm x 1.4 cm. There is a homogeneous echotexture. Stable 1.7 cm x 1.1 cm x 0.9 cm solid nodule in the lower pole. There is also evidence of an 8 mm x 7 mm x 7 mm solid nodule in the midpole. ISTHMUS: The isthmus measures 2 mm. The regional lymph nodes are normal. US/Thyroid IMPRESSION: Interval decrease in size of the right thyroid nodule. Stable dominant nodule in the left lobe of the thyroid. Electronically Signed: Luis Santo MD at 12:48 EST , Service support ,
== END ==
PROVIDERS: PCP Nurse Practitioner; Referring Provider Nurse Practitioner; Visit Provider Nurse Practitioner
DX: E04.1 Nontoxic single thyroid nodule (principal)
CPT/HCPCS: 76536

== ENCOUNTER → 2020-12-01 10:39 | Outpatient (CLI) | payer OTHER, SELFPAY | PROVIDERS: PCP Nurse Practitioner; Referring Provider Nurse Practitioner; Visit Provider Nurse Practitioner | DX: U07.1 COVID-19 (principal) | CPT/HCPCS: 87635; C9803; U0005; U0003 ==

== ENCOUNTER → 2021-09-17 | Outpatient (CLI) | payer OTHER, SELFPAY ==
[2021-09-17 11:04] LABS: Absolute Lymphocyte Count 1.87 X10^3/uL (0.83-4.51); Absolute Neutrophil Count 2.5 X10^3/uL (2.0-7.7); Basophil# 0.05 X10^3/uL; Eosinophil# 0.24 X10^3/uL; Eosinophils% 4.7 % (0-5); Hematocrit 40.6 % (37-47); Hemoglobin 13.3 g/dL (12.0-15.0); Lymphocyte # 1.87 X10^3/ul (0.83-4.51); Lymphocyte % 36.4 % (19-41); Mean Corp Hgb Conc 32.8 g/dL (32-36); Mean Corpuscular Hgb 31.1 pg (27.0-32.0); Mean Corpuscular Volume 94.9 fL (81-99); Mean Platelet Vol. 10.1 fl (6.2-12.0); Monocyte# 0.48 X10^3/uL; Monocyte% 9.3 % (0-10); NRBC Flagged by Analyzer 0 % (0-5); Neutrophil # 2.49 X10^3/uL (2.7-7.7); Neutrophil % 48.4 % (47-70); Platelet Count 352 K/mm3 (150-450); RBC Distribution Width CV 12.1 % (11.6-14.6); RBC Distribution Width SD 42.1 fl (35.1-43.9); Red Blood Count 4.28 M/mm3 (4.2-5.4); White Blood Count 5.1 K/mm3 (4.4-11.0)
[2021-09-17 11:39] LABS: ALB/GLOB Ratio 1.1 RATIO (0.9-2.4); AST(SGOT) 23 U/L (15-37); Alanine Aminotransfer ALT/SGPT 27 U/L (13-56); Albumin, Serum 4.1 g/dL (3.2-5.0); Alkaline Phosphatase 63 U/L (45-117); Anion Gap 3 (5-15); BUN 11 mg/dL (7-18); BUN/Creat Ratio 14.3 RATIO (10-20); Chloride 105 mmol/L (98-107); Creatinine, Serum 0.77 mg/dL (0.55-1.02); EST Glomerular Filtration Rate 85 mL/min (>60); Est Glom Filt Rate - Afr Amer 103 mL/min (>60); Globulin 3.7 g/dL (2.2-4.2); Glucose 94 mg/dL (74-106); Magnesium 2.2 mg/dL (1.6-2.6); Potassium 4.2 mmol/L (3.5-5.1); Protein, Total 7.8 g/dL (6.4-8.2); Sodium Level 138 mmol/L (136-145); T4 Free Direct 0.84 ng/dL (0.76-1.46); Thyroid Stim Hormone (TSH) 1.24 uIU/mL (0.358-3.74)
== END | disposition home or self-care (01) ==
LOC: LAB 10:31
PROVIDERS: PCP Nurse Practitioner; Referring Provider Nurse Practitioner Family; Visit Provider Nurse Practitioner Family
DX: R00.2 Palpitations (principal); I49.3 Ventricular premature depolarization; R55 Syncope and collapse; E04.2 Nontoxic multinodular goiter
CPT/HCPCS: 36415; 80053; 83735; 84439; 84443; 85025

== ENCOUNTER → 2022-04-02 | Outpatient (CLI) | payer OTHER, SELFPAY ==
--- NOTE | 2022-04-02 15:12 | US_ITS ---
STUDY: THYROID ULTRASOUND REASON FOR EXAM: Female, 51 years old. Thyroid nodule. TECHNIQUE: Ultrasound evaluation of the thyroid was performed with real-time and static naranjo-scale imaging. COMPARISON: April 23, 2020 FINDINGS: RIGHT LOBE: The right lobe of the thyroid gland measures 4.8 x 1.3 x 1.7 cm. There is a homogeneous echotexture. In the mid thyroid there is a 2.1 x 1.3 x 1.0 cm lobulated hypoechoic nodule with mildly indistinct margins. This is wider than it is tall. More anteriorly in the mid thyroid there is a 0.3 x 0.2 x 0.3 cm hypoechoic nodule with through transmission. This may be a complicated cyst. Also noted in the posterior mid thyroid is a 0.6 x 0.5 x 0.6 cm mildly hypoechoic nodule with markedly hypoechoic rim. This is slightly wider than it is tall. Normal vascularity on Doppler imaging. LEFT LOBE: The left lobe of the thyroid gland measures 5.3 x 1.4 x 1.2 cm. There is a homogeneous echotexture. In the mid thyroid there is a 0.9 x 0.6 x 0.8 cm isoechoic nodule with hypoechoic rim. This is wider than is tall with peripheral vascularity. In the upper pole is a 0.5 x 0.5 x 0.2 cm isoechoic nodule with hypoechoic rim which is wider than it is tall. In the lower pole is a 1.7 x 1.0 x 1.5 cm mildly hypoechoic nodule with indistinct rim. This is wider than it is tall. Mild peripheral vascularity. ISTHMUS: The isthmus measures 0.2 cm. The regional lymph nodes are normal. US/Thyroid IMPRESSION: 1. Multinodular thyroid. The nodules in the mid to lower left thyroid appears similar in size although there is decreased echogenicity in the lower pole and compared to the prior study. Larger nodule was previously biopsied in February 2017. 2. The larger lobulated nodule in the mid right thyroid is considered to be moderately suspicious, TR 4 using TI-RADS categorization. FNA is recommended. 3. The remainder of the nodules require no further follow-up or FNA due to their small size. Electronically Signed: Sean Thomas DO at 16:49 EST Reading Location ID and State: [address] [place] [address] Tel [phone], Service support ,
== END | disposition home or self-care (01) ==
LOC: US 15:11
PROVIDERS: PCP Nurse Practitioner Family; Visit Provider Nurse Practitioner Family
DX: E04.2 Nontoxic multinodular goiter (principal)
CPT/HCPCS: 76536

== ENCOUNTER → 2024-02-08 | Outpatient (CLI) | payer OTHER, SELFPAY ==
--- NOTE | 2024-02-08 17:29 | US_ITS ---
STUDY: THYROID ULTRASOUND REASON FOR EXAM: Female, 53 years old. NODULES TECHNIQUE: Ultrasound evaluation of the thyroid was performed with real-time and static naranjo-scale imaging. COMPARISON: 04/02/2022 FINDINGS: RIGHT LOBE: The right lobe of the thyroid gland measures 5.1 x 1.4 x 1.4 cm. There is a homogeneous echotexture. Nodule 1: No change in the 20 x 10 x 9 mm solid hypoechoic wider than tall ill-defined margin nodule and no echogenic foci (TR 4) in the posterior right lobe for which ultrasound-guided biopsy is recommended if never performed. LEFT LOBE: The left lobe of the thyroid gland measures 5.6 x 1.1 x 0.9 cm. There is a homogeneous echotexture. Nodule 2: No change in a 9 x 7 x 9 mm solid isoechoic water than tall ill-defined margin although no echogenic foci (TR 3) in the posterior left lobe consistent with an adenoma. Nodule 3: No change in the 16 x 9 x 12 mm solid isoechoic wider than tall smoothly marginated nodule in no echogenic foci (TR 3) in the inferior left lobe and follow-up ultrasound is recommended in 1 year. ISTHMUS: The isthmus measures 2 mm thick. . The regional lymph nodes are normal. US/Thyroid IMPRESSION: No change in multinodular thyroid gland. Follow-up ultrasound is recommended in one year. Electronically Signed: Jonathan Urena MD at 8:58 EST ,
== END | disposition home or self-care (01) ==
LOC: US 17:13
PROVIDERS: PCP Nurse Practitioner Family; Referring Provider Nurse Practitioner Family; Visit Provider Nurse Practitioner Family
DX: E04.1 Nontoxic single thyroid nodule (principal)
CPT/HCPCS: 76536